=== PATIENT | female | born 1985 | race Caucasian/White ===

== ENCOUNTER 2023-07-19 04:29 | Inpatient (IN) ==
[2023-07-19] MEDS ORDERED: Promethazine INJ(RESTRICTED) 25 MG/ML 1 ml VIAL IV PRN (04:58)
[2023-07-19] MEDS ORDERED: Buffered Lidocaine 1% SYRIN 1 ml INTRADERM ONE (04:58)
[2023-07-19] MEDS ORDERED: Lactated Ringers 1000 ml BAG 1,000 ML IV ONE (04:58)
[2023-07-19] MEDS ORDERED: Lactated Ringers 1000 ml BAG 1,000 ML IV SCH ×2 (05:00→07:00)
[2023-07-19] MEDS ORDERED: Witch Hazel PAD JAR TOPICAL PRN (06:18)
[2023-07-19] MEDS ORDERED: Oxytocin 10 UNITS/ML 1 ML VIAL IM ONE (06:18)
[2023-07-19] MEDS ORDERED: Dibucaine 1% OINT 28.35 GM TUBE PR PRN (06:18)
[2023-07-19] MEDS ORDERED: Glycerin ADULT 2.4 gm SUPP PR PRN (06:18)
[2023-07-19 12:47] LABS: Urine Benzodiazepine Screen None Detected (None Detect); Urine Opiates Screen None Detected (None Detect)
[2023-07-20 07:26] LABS: ABS Basophils 0.1 10^3/uL (0.0-0.1); ABS Eosinophils 0.1 10^3/uL (0.0-0.5); ABS Lymphocytes 1.9 10^3/uL (1.0-4.8); ABS Monocytes 0.7 10^3/uL (0.0-0.9); ABS Neutrophils 10.3 10^3/uL (1.5-7.6); Eosinophil % 1.1 %; Hematocrit 35.1 % (35-45); Hemoglobin 11.5 g/dL (11.5-14.3); Lymphocyte % 14.4 %; Mean Corpuscular Hemoglobin 27.7 pg (27-33); Mean Corpuscular Hgb Conc 32.9 g/dL (31-36); Mean Corpuscular Volume 84.2 fL (80-97); Mean Platelet Volume 10.8 fL (7.5-11.2); Platelet Count 154 10^3/uL (150-450); Red Blood Count 4.17 10^6/uL (3.63-4.92); Red Cell Distribution Width 14.3 % (12-17); White Blood Count 13.1 10^3/uL (3.8-11.8)
[2023-07-20 07:57] VITALS: BP 106/71
== END 2023-07-20 14:59 | disposition home or self-care (01) | DRG 560 ==
LOC: MCHOBOUT 04:29 → MCHOB 04:58
PROVIDERS: ADMIT Registered Nurse; ATTEND Registered Nurse